=== PATIENT | female | born 1960 | race Caucasian/White ===

== ENCOUNTER 2018-07-04 14:06 | Emergency (ER) | payer OTHER ==
[2018-07-04] MEDS ORDERED: PERCOCET 5/325M1 TAB PO (15:37)
[2018-07-04 15:50] VITALS: BP 148/88
== END 2018-07-04 15:50 | disposition home or self-care (01) | DRG 563 ==
LOC: ED 14:06
PROC: 2W3DX1Z Immobilization of Left Lower Arm using Splint (ICD-10-PCS; principal; 2018-07-04)
DX: S52.512A Displaced fracture of left radial styloid process, initial encounter for closed fracture (principal); R22.32 Localized swelling, mass and lump, left upper limb; W17.89XA Other fall from one level to another, initial encounter; Y93.16 Activity, rowing, canoeing, kayaking, rafting and tubing; Y92.828 Other wilderness area as the place of occurrence of the external cause